=== PATIENT | female | born 1940 | race Caucasian/White ===

== ENCOUNTER → 2017-10-28 | Outpatient (CLI) | payer OTHER ==
[2017-10-28 11:00] LABS: CREATININE 1.15 mg/dL (0.55-1.02); POTASSIUM 4.2 mmol/L (3.5-5.1)
[2017-10-28 11:07] LABS: THYROID STIM HORMONE (HS) 8.61 uIU/ml (0.358-4.75)
== END | disposition home or self-care (01) ==
LOC: LAB 10:03
PROVIDERS: Family Medicine
DX: I10 Essential (primary) hypertension (principal); E78.00 Pure hypercholesterolemia, unspecified; R73.9 Hyperglycemia, unspecified

== ENCOUNTER → 2018-02-03 | Outpatient (CLI) | payer OTHER ==
[2018-02-03 11:38] LABS: BASO % 0.4 % (0.0-1.0); EOS # 0.3 10*3/uL (0.0-0.4); EOS % 2.8 % (1.0-4.0); HEMATOCRIT 45.5 % (37.0-47.0); HEMOGLOBIN 14.5 g/dl (12.0-16.0); LYMPH # 1.7 10*3/uL (1.3-4.4); LYMPH % 18.3 % (27.0-41.0); MEAN CORPUSCULAR HGB 30.9 pg (27.0-31.0); MEAN CORPUSCULAR HGB CONC 31.9 g/dl (33.0-37.0); MEAN PLATELET VOLUME 9.8 fl (9.6-12.3); MONO # 0.6 10*3/uL (0.1-1.0); MONO % 6.6 % (3.0-9.0); NEUT # 6.7 10*3/uL (2.3-7.9); NEUT % 71.7 % (47.0-73.0); PLATELET COUNT AUTOMATED 195 10*3/uL (130-400); RED BLOOD COUNT 4.69 10*6/uL (4.10-5.10); RED CELL DISTRI WIDTH 13.2 % (0-14.5); WHITE BLOOD COUNT 9.4 10*3/uL (4.8-10.8)
[2018-02-03 12:00] LABS: ALBUMIN 3.6 gm/dl (3.1-4.5); ALKALINE PHOSPHATASE 81 U/L (45-117); BUN 17 mg/dl (7-24); CHLORIDE 99 mmol/L (98-107); POTASSIUM 4.1 mmol/L (3.5-5.1); SGOT/AST 15 IU/L (3-35); SGPT/ALT 13 U/L (12-78); SODIUM 139 mmol/L (136-145); THYROXINE (T4) TOTAL 8.5 ug/dl (4.8-13.9); TOTAL PROTEIN 7.3 gm/dL (6.4-8.2)
== END | disposition home or self-care (01) ==
LOC: LAB 11:02
PROVIDERS: Family Medicine
DX: R53.83 Other fatigue (principal); R94.6 Abnormal results of thyroid function studies; J40 Bronchitis, not specified as acute or chronic; R73.9 Hyperglycemia, unspecified

== ENCOUNTER → 2019-07-06 | Outpatient (CLI) | payer OTHER ==
[2019-07-06 15:08] LABS: BUN 18 mg/dl (7-24); CHLORIDE 99 mmol/L (98-107); CHOLESTEROL 177 mg/dL (<200); CREATININE 0.85 mg/dL (0.55-1.02); HDL CHOLESTEROL 61 mg/dl (40-60); LDL CHOLESTEROL 95 mg/dL (9-159); POTASSIUM 3.9 mmol/L (3.5-5.1); SODIUM 139 mmol/L (136-145); TRIGLYCERIDES 107 mg/dl (<150); VLDL CHOLESTEROL 21 mg/dL (6-40)
[2019-07-06 15:13] LABS: THYROID STIM HORMONE (HS) 0.685 uIU/ml (0.358-4.75)
== END | disposition home or self-care (01) ==
LOC: LAB 14:13
PROVIDERS: Family Medicine
DX: I10 Essential (primary) hypertension (principal); R73.9 Hyperglycemia, unspecified

== ENCOUNTER 2020-09-29 05:20 | Inpatient (IN) | payer OTHER ==
[~2020-09-29] VITALS: Ht 149.8 cm; Wt 64.9 kg
[2020-09-29 05:24] VITALS: BP 142/52
[2020-09-29 05:57] LABS: BUN 17 mg/dl (7-24); CHLORIDE 103 mmol/L (98-107); CREATININE 1.02 mg/dL (0.55-1.02); POTASSIUM 4.3 mmol/L (3.5-5.1); SODIUM 143 mmol/L (136-145)
[2020-09-29 06:20] LABS: BASO % 0.2 % (0.0-1.0); EOS % 0.2 % (1.0-4.0); HEMATOCRIT 34.9 % (37.0-47.0); LYMPH # 0.5 10*3/uL (1.3-4.4); LYMPH % 4.2 % (27.0-41.0); MEAN CELL VOLUME 106.1 fl (81.0-99.0); MEAN CORPUSCULAR HGB 30.7 pg (27.0-31.0); MEAN CORPUSCULAR HGB CONC 28.9 g/dl (33.0-37.0); MEAN PLATELET VOLUME 10.3 fl (9.6-12.3); MONO # 0.9 10*3/uL (0.1-1.0); MONO % 7.1 % (3.0-9.0); NEUT # 11.4 10*3/uL (2.3-7.9); NEUT % 87.8 % (47.0-73.0); PLATELET COUNT AUTOMATED 181 10*3/uL (130-400); RED BLOOD COUNT 3.29 10*6/uL (4.10-5.10); RED CELL DISTRI WIDTH 13.2 % (0-14.5)
[2020-09-29 08:00] VITALS: BP 172/65
[2020-09-29 12:12] LABS: ABG BASE EXCESS 9.3 mmol/L (-2.0-2.0); ARTERIAL BLOOD GAS PH 7.353 (7.35-7.45)
[2020-09-29 12:30] VITALS: BP 172/65
[2020-09-29] MEDS ORDERED: LEVOTHYROXINE50 MCG PO (13:44)
[2020-09-29] MEDS ORDERED: PHENERGAN25 M3 PO (13:45)
[2020-09-29] MEDS ORDERED: LORAZEPAM1 MG PO (13:45)
[2020-09-29] MEDS ORDERED: VENT7GM INH (13:46)
[2020-09-29] MEDS ORDERED: ADVAIR HFA 115-12 GM IH (13:46)
[2020-09-29] MEDS ORDERED: HYDROCODONE-AC1 EAC1 PO (13:47)
[2020-09-29] MEDS ORDERED: HYDROCHLOROTH12.5 M3 PO (13:47)
[2020-09-29] MEDS ORDERED: LOSARTAN POTASS50 M1 PO (13:47)
[2020-09-29] MEDS ORDERED: MECLIZINE HCL25 M2 PO (13:55)
[2020-09-29 16:00] VITALS: BP 146/71
[2020-09-29 20:00] VITALS: BP 147/53
[2020-09-30] VITALS: BP 139/76
[2020-09-30 06:33] LABS: HEMATOCRIT 31.9 % (37.0-47.0); MEAN CORPUSCULAR HGB 29.8 pg (27.0-31.0); MEAN CORPUSCULAR HGB CONC 29.8 g/dl (33.0-37.0); MEAN PLATELET VOLUME 10.3 fl (9.6-12.3); PLATELET COUNT AUTOMATED 187 10*3/uL (130-400); RED BLOOD COUNT 3.19 10*6/uL (4.10-5.10); RED CELL DISTRI WIDTH 12.9 % (0-14.5); WHITE BLOOD COUNT 7.2 10*3/uL (4.8-10.8)
[2020-09-30 06:38] LABS: ALBUMIN 2.8 gm/dl (3.1-4.5); CREATININE 1.1 mg/dL (0.55-1.02); POTASSIUM 3.9 mmol/L (3.5-5.1); TOTAL PROTEIN 6.6 gm/dL (6.4-8.2)
[2020-09-30 06:43] LABS: ACT PARTIAL THROMBO TIME 24.8 SECONDS (20.0-32.1); INTERNATIONAL NORM RATIO 1.1 (2.0-3.5)
[2020-09-30 06:46] LABS: FREE T4 1.2 ng/dl (0.76-1.46); THYROID STIM HORMONE (HS) 0.1 uIU/ml (0.358-4.75)
[2020-09-30 07:32] LABS: TOTAL CELLS COUNTED 100 #CELLS
[2020-09-30 07:33] LABS: PLATELET SUFFICIENCY NORMAL (NORMAL)
[2020-09-30 08:00] VITALS: BP 166/59
[2020-09-30 08:59] LABS: VITAMIN D, 25-HYDROXY 14.3 ng/mL (30-100)
[2020-09-30 09:00] LABS: FERRITIN 94.8 ng/mL (10.0-291.0)
[2020-09-30 12:00] VITALS: BP 154/61
[2020-09-30 16:00] VITALS: BP 145/70
[2020-09-30 20:00] VITALS: BP 151/46
[2020-10-01] VITALS: BP 146/57
[2020-10-01 06:31] LABS: EOS % 0.1 % (1.0-4.0); HEMATOCRIT 34.9 % (37.0-47.0); LYMPH # 0.8 10*3/uL (1.3-4.4); LYMPH % 8.5 % (27.0-41.0); MEAN CORPUSCULAR HGB 29.8 pg (27.0-31.0); MEAN CORPUSCULAR HGB CONC 29.8 g/dl (33.0-37.0); MEAN PLATELET VOLUME 10.4 fl (9.6-12.3); MONO # 0.7 10*3/uL (0.1-1.0); MONO % 7.3 % (3.0-9.0); NEUT # 7.6 10*3/uL (2.3-7.9); NEUT % 83.8 % (47.0-73.0); PLATELET COUNT AUTOMATED 227 10*3/uL (130-400); RED BLOOD COUNT 3.49 10*6/uL (4.10-5.10); RED CELL DISTRI WIDTH 12.9 % (0-14.5)
[2020-10-01 06:57] LABS: ALBUMIN 2.9 gm/dl (3.1-4.5); CREATININE 1.15 mg/dL (0.55-1.02); POTASSIUM 3.6 mmol/L (3.5-5.1); TOTAL PROTEIN 6.9 gm/dL (6.4-8.2)
[2020-10-01 08:00] VITALS: BP 149/62
[2020-10-01 08:14] LABS: ARTERIAL BLOOD GAS PH 7.37 (7.35-7.45)
[2020-10-01 12:00] VITALS: BP 149/63
[2020-10-01 16:00] VITALS: BP 139/68
[2020-10-01 20:00] VITALS: BP 153/53
[2020-10-02] VITALS: BP 155/64
[2020-10-02 06:54] LABS: EOS % 0.1 % (1.0-4.0); HEMATOCRIT 35.5 % (37.0-47.0); LYMPH # 0.7 10*3/uL (1.3-4.4); LYMPH % 9.4 % (27.0-41.0); MEAN CELL VOLUME 100.3 fl (81.0-99.0); MEAN CORPUSCULAR HGB 29.7 pg (27.0-31.0); MEAN CORPUSCULAR HGB CONC 29.6 g/dl (33.0-37.0); MONO # 0.6 10*3/uL (0.1-1.0); MONO % 9.1 % (3.0-9.0); NEUT # 5.6 10*3/uL (2.3-7.9); NEUT % 80.8 % (47.0-73.0); PLATELET COUNT AUTOMATED 237 10*3/uL (130-400); RED BLOOD COUNT 3.54 10*6/uL (4.10-5.10); RED CELL DISTRI WIDTH 12.7 % (0-14.5); WHITE BLOOD COUNT 6.9 10*3/uL (4.8-10.8)
[2020-10-02 07:03] LABS: BUN 42 mg/dl (7-24); CHLORIDE 93 mmol/L (98-107); CREATININE 1.04 mg/dL (0.55-1.02); POTASSIUM 3.8 mmol/L (3.5-5.1); SODIUM 142 mmol/L (136-145)
[2020-10-02 08:00] VITALS: BP 150/55
[2020-10-02] MEDS ORDERED: FUROSEMIDE40 MG PO (10:38)
[2020-10-02] MEDS ORDERED: K-TAB20 MEQ PO (10:39)
[2020-10-02 12:00] VITALS: BP 109/50
== END 2020-10-02 14:27 | disposition home or self-care (01) | DRG 871 ==
LOC: ED 05:20 → EDHOLD 09:11 → 4E 09:11 → 5E 09:11 → EDHOLD 11:18 → 5E 11:57 → 4E 09-30 00:47
PROVIDERS: Hospitalist; Internal Medicine; Internal Medicine Critical Care Medicine; Social Worker Clinical; ADMIT Internal Medicine; ATTEND Internal Medicine
DX: A41.9 Sepsis, unspecified organism (principal); I50.33 Acute on chronic diastolic (congestive) heart failure; J44.0 Chronic obstructive pulmonary disease with (acute) lower respiratory infection; J96.12 Chronic respiratory failure with hypercapnia; J44.1 Chronic obstructive pulmonary disease with (acute) exacerbation; J20.9 Acute bronchitis, unspecified; D53.9 Nutritional anemia, unspecified; Z20.828 Contact with and (suspected) exposure to other viral communicable diseases; R73.9 Hyperglycemia, unspecified; E03.9 Hypothyroidism, unspecified; I11.0 Hypertensive heart disease with heart failure; E66.9 Obesity, unspecified; F17.210 Nicotine dependence, cigarettes, uncomplicated; Z79.51 Long term (current) use of inhaled steroids; Z80.0 Family history of malignant neoplasm of digestive organs; Z79.1 Long term (current) use of non-steroidal anti-inflammatories (NSAID); Z79.899 Other long term (current) drug therapy; Z82.49 Family history of ischemic heart disease and other diseases of the circulatory system

== ENCOUNTER 2020-11-23 10:41 | Inpatient (IN) | payer OTHER ==
[2020-11-23] VITALS (16 sets, daily range): BP systolic 94–168; BP diastolic 30–84
[~2020-11-23] VITALS: Ht 157.5 cm; Wt 64.6 kg
[~2020-11-23 10:41] MED LIST: ADVAIR HFA 115-12 GM IH; FUROSEMIDE40 MG PO; HYDROCHLOROTH12.5 M3 PO; HYDROCODONE-AC1 EAC1 PO; K-TAB20 MEQ PO; LEVOTHYROXINE50 MCG PO; LORAZEPAM1 MG PO; LOSARTAN POTASS50 M1 PO; MECLIZINE HCL25 M2 PO; PHENERGAN25 M3 PO; VENT7GM INH
[2020-11-23 11:09] LABS: HEMATOCRIT 39.6 % (37.0-47.0); MEAN CELL VOLUME 108.2 fl (81.0-99.0); MEAN CORPUSCULAR HGB 30.1 pg (27.0-31.0); MEAN CORPUSCULAR HGB CONC 27.8 g/dl (33.0-37.0); PLATELET COUNT AUTOMATED 223 10*3/uL (130-400); RED BLOOD COUNT 3.66 10*6/uL (4.10-5.10); RED CELL DISTRI WIDTH 13.4 % (0-14.5); WHITE BLOOD COUNT 19.5 10*3/uL (4.8-10.8)
[2020-11-23 11:22] LABS: ACT PARTIAL THROMBO TIME 24.6 SECONDS (20.0-32.1)
[2020-11-23 11:26] LABS: TOTAL CELLS COUNTED 100 #CELLS
[2020-11-23 11:27] LABS: PLATELET SUFFICIENCY NORMAL (NORMAL); POLYCHROMASIA SLIGHT; TOXIC GRANULATION SLIGHT; VACUOLATION OF NEUTROPHILS SLIGHT
[2020-11-23 11:29] LABS: ALKALINE PHOSPHATASE 101 U/L (45-117); BUN 17 mg/dl (7-24); CHLORIDE 106 mmol/L (98-107); CREATININE 0.99 mg/dL (0.55-1.02); POTASSIUM 4.5 mmol/L (3.5-5.1); SGOT/AST 30 IU/L (3-35); SGPT/ALT 21 U/L (12-78); SODIUM 143 mmol/L (136-145); TOTAL PROTEIN 7.1 gm/dL (6.4-8.2); TROPONIN I 0.037 ng/ml (<0.045)
[2020-11-23 11:54] LABS: BILIRUBIN Negative (Negative); BLOOD 2+ (Negative); CLARITY Turbid (Clear); COLOR Dark Yellow (Yellow); GLUCOSE Negative (Negative); KETONE Trace (Negative); LEUKO ESTERASE Negative (Negative); NITRITE Negative (Negative); SPECIFIC GRAVITY 1.025 (1.001-1.030)
[2020-11-23 12:06] LABS: BACTERIA 3+; EPITHELIAL CELLS 16-20; RBC 16-20 rbc/hpf (0-2)
[2020-11-23 12:07] LABS: COARSE GRANULAR CAST 31-40; MUCOUS 2+
[2020-11-23 13:24] LABS: ABG BASE EXCESS 3.9 mmol/L (-2.0-2.0); ARTERIAL BLOOD GAS PH 7.255 (7.35-7.45)
[2020-11-23] MEDS ORDERED: ASPIRIN CHEWABL81 MG PO (16:37)
[2020-11-23 17:05] LABS: ABG BASE EXCESS 2.2 mmol/L (-2.0-2.0); ARTERIAL BLOOD GAS PH 7.301 (7.35-7.45)
[2020-11-23 18:10] LABS: URINE AMPHETAMINES < 1000 (1000ng/ml); URINE BARBITURATES < 200 (200ng/ml); URINE BENZODIAZEPINES > 200 (200ng/ml); URINE CANNABINOIDS (THC) < 50 (50ng/ml); URINE COCAINE < 300 (300ng/ml); URINE METHADONE < 300 (300ng/ml); URINE OPIATES > 300 (300ng/ml)
[2020-11-23 18:12] LABS: URINE PHENCYCLIDINE < 25 (25ng/ml)
[2020-11-24] VITALS (13 sets, daily range): BP systolic 101–169; BP diastolic 31–69
[2020-11-24 06:16] LABS: POTASSIUM 3.8 mmol/L (3.5-5.1)
[2020-11-24 06:32] LABS: ALBUMIN 2.6 gm/dl (3.1-4.5); CREATININE 1.16 mg/dL (0.55-1.02); FREE T4 1.23 ng/dl (0.76-1.46); THYROID STIM HORMONE (HS) 0.184 uIU/ml (0.358-4.75); TOTAL PROTEIN 6.1 gm/dL (6.4-8.2)
[2020-11-24 06:39] LABS: MEAN CORPUSCULAR HGB 29.8 pg (27.0-31.0); MEAN CORPUSCULAR HGB CONC 29.4 g/dl (33.0-37.0); MEAN PLATELET VOLUME 10.5 fl (9.6-12.3); PLATELET COUNT AUTOMATED 187 10*3/uL (130-400); RED BLOOD COUNT 3.15 10*6/uL (4.10-5.10); RED CELL DISTRI WIDTH 13.7 % (0-14.5)
[2020-11-24 06:42] LABS: MEAN CELL VOLUME 101.6 fl (81.0-99.0)
[2020-11-24 07:08] LABS: PLATELET SUFFICIENCY NORMAL (NORMAL); TOTAL CELLS COUNTED 100 #CELLS; TOXIC GRANULATION SLIGHT
[2020-11-24 08:09] LABS: ABG BASE EXCESS 5.9 mmol/L (-2.0-2.0); ARTERIAL BLOOD GAS PH 7.398 (7.35-7.45); ARTERIAL BLOOD GAS PO2 115.9 (80-90)
[2020-11-24 16:57] LABS: ABG BASE EXCESS 3.6 mmol/L (-2.0-2.0); ARTERIAL BLOOD GAS PH 7.42 (7.35-7.45); ARTERIAL BLOOD GAS PO2 71.5 (80-90)
[2020-11-25] VITALS (10 sets, daily range): BP systolic 135–176; BP diastolic 45–85
[2020-11-25 06:10] LABS: ALBUMIN 2.6 gm/dl (3.1-4.5); ALKALINE PHOSPHATASE 76 U/L (45-117); BUN 29 mg/dl (7-24); CHLORIDE 105 mmol/L (98-107); CREATININE 1.01 mg/dL (0.55-1.02); SGOT/AST 22 IU/L (3-35); SGPT/ALT 17 U/L (12-78); SODIUM 144 mmol/L (136-145); TOTAL PROTEIN 6.2 gm/dL (6.4-8.2)
[2020-11-25 07:09] LABS: HEMATOCRIT 33.4 % (37.0-47.0); MEAN CORPUSCULAR HGB 29.9 pg (27.0-31.0); MEAN CORPUSCULAR HGB CONC 30.5 g/dl (33.0-37.0); MEAN PLATELET VOLUME 11.2 fl (9.6-12.3); PLATELET COUNT AUTOMATED 197 10*3/uL (130-400); RED BLOOD COUNT 3.41 10*6/uL (4.10-5.10); RED CELL DISTRI WIDTH 13.9 % (0-14.5); WHITE BLOOD COUNT 13.7 10*3/uL (4.8-10.8)
[2020-11-25 07:17] LABS: MEAN CELL VOLUME 97.9 fl (81.0-99.0)
[2020-11-25 07:30] LABS: PLATELET SUFFICIENCY NORMAL (NORMAL); TOTAL CELLS COUNTED 100 #CELLS; TOXIC GRANULATION SLIGHT
[2020-11-25 08:13] LABS: ABG BASE EXCESS 6.8 mmol/L (-2.0-2.0); ARTERIAL BLOOD GAS PH 7.455 (7.35-7.45); ARTERIAL BLOOD GAS PO2 81.4 (80-90)
[2020-11-25 13:52] LABS: ABG BASE EXCESS 7.6 mmol/L (-2.0-2.0); ARTERIAL BLOOD GAS PH 7.415 (7.35-7.45); ARTERIAL BLOOD GAS PO2 79.3 (80-90)
[2020-11-25 17:14] LABS: ABG BASE EXCESS 8.9 mmol/L (-2.0-2.0); ARTERIAL BLOOD GAS PH 7.401 (7.35-7.45); ARTERIAL BLOOD GAS PO2 135.3 (80-90)
[2020-11-26] VITALS: BP 175/65
[2020-11-26 04:00] VITALS: BP 183/72
[2020-11-26 06:16] LABS: HEMATOCRIT 31.3 % (37.0-47.0); MEAN CELL VOLUME 99.7 fl (81.0-99.0); MEAN CORPUSCULAR HGB 30.3 pg (27.0-31.0); MEAN CORPUSCULAR HGB CONC 30.4 g/dl (33.0-37.0); MEAN PLATELET VOLUME 10.3 fl (9.6-12.3); PLATELET COUNT AUTOMATED 208 10*3/uL (130-400); RED BLOOD COUNT 3.14 10*6/uL (4.10-5.10); RED CELL DISTRI WIDTH 14.4 % (0-14.5); WHITE BLOOD COUNT 13.7 10*3/uL (4.8-10.8)
[2020-11-26 06:28] LABS: ALBUMIN 2.8 gm/dl (3.1-4.5); BUN 33 mg/dl (7-24); CHLORIDE 103 mmol/L (98-107); POTASSIUM 4.7 mmol/L (3.5-5.1); SODIUM 139 mmol/L (136-145)
[2020-11-26 06:35] LABS: ALKALINE PHOSPHATASE 73 U/L (45-117); CREATININE 1.01 mg/dL (0.55-1.02); SGOT/AST 37 IU/L (3-35); SGPT/ALT 25 U/L (12-78); TOTAL PROTEIN 6.4 gm/dL (6.4-8.2)
[2020-11-26 07:46] LABS: PLATELET SUFFICIENCY NORMAL (NORMAL); TOTAL CELLS COUNTED 100 #CELLS
[2020-11-26 08:00] VITALS: BP 162/66
[2020-11-26 12:00] VITALS: BP 148/76
[2020-11-26 12:52] LABS: ARTERIAL BLOOD GAS PH 7.377 (7.35-7.45)
[2020-11-26 16:00] VITALS: BP 184/78
[2020-11-26 20:00] VITALS: BP 176/83
[2020-11-27] VITALS: BP 167/72
[2020-11-27 04:00] VITALS: BP 149/49
[2020-11-27 06:26] LABS: ALBUMIN 3.2 gm/dl (3.1-4.5); ALKALINE PHOSPHATASE 79 U/L (45-117); BUN 36 mg/dl (7-24); CHLORIDE 99 mmol/L (98-107); CREATININE 0.97 mg/dL (0.55-1.02); POTASSIUM 5.2 mmol/L (3.5-5.1); SGOT/AST 70 IU/L (3-35); SGPT/ALT 50 U/L (12-78); SODIUM 142 mmol/L (136-145)
[2020-11-27 06:32] LABS: HEMATOCRIT 34.8 % (37.0-47.0); MEAN CELL VOLUME 99.7 fl (81.0-99.0); MEAN CORPUSCULAR HGB 29.5 pg (27.0-31.0); MEAN CORPUSCULAR HGB CONC 29.6 g/dl (33.0-37.0); MEAN PLATELET VOLUME 10.6 fl (9.6-12.3); RED BLOOD COUNT 3.49 10*6/uL (4.10-5.10); RED CELL DISTRI WIDTH 14.1 % (0-14.5); WHITE BLOOD COUNT 16.1 10*3/uL (4.8-10.8)
[2020-11-27 06:34] LABS: PLATELET COUNT AUTOMATED 302 10*3/uL (130-400)
[2020-11-27 06:44] LABS: PLATELET SUFFICIENCY NORMAL (NORMAL); STOMATOCYTE FEW; TOTAL CELLS COUNTED 100 #CELLS
[2020-11-27 08:00] VITALS: BP 170/67
[2020-11-27 12:00] VITALS: BP 185/77
[2020-11-27 16:00] VITALS: BP 184/65
[2020-11-27 20:00] VITALS: BP 166/56
[2020-11-28] VITALS: BP 164/72
[2020-11-28 04:00] VITALS: BP 160/64
[2020-11-28 06:27] LABS: BASO % 0.2 % (0.0-1.0); HEMATOCRIT 32.9 % (37.0-47.0); LYMPH # 0.7 10*3/uL (1.3-4.4); LYMPH % 7.4 % (27.0-41.0); MEAN CORPUSCULAR HGB 29.5 pg (27.0-31.0); MEAN CORPUSCULAR HGB CONC 29.5 g/dl (33.0-37.0); MEAN PLATELET VOLUME 10.2 fl (9.6-12.3); MONO # 0.8 10*3/uL (0.1-1.0); NEUT # 8.2 10*3/uL (2.3-7.9); NEUT % 82.9 % (47.0-73.0); PLATELET COUNT AUTOMATED 221 10*3/uL (130-400); RED BLOOD COUNT 3.29 10*6/uL (4.10-5.10); RED CELL DISTRI WIDTH 13.8 % (0-14.5); WHITE BLOOD COUNT 9.9 10*3/uL (4.8-10.8)
[2020-11-28 06:51] LABS: ALBUMIN 2.8 gm/dl (3.1-4.5); ALKALINE PHOSPHATASE 67 U/L (45-117); BUN 35 mg/dl (7-24); CHLORIDE 100 mmol/L (98-107); CREATININE 0.83 mg/dL (0.55-1.02); POTASSIUM 5.1 mmol/L (3.5-5.1); SGOT/AST 32 IU/L (3-35); SGPT/ALT 49 U/L (12-78); SODIUM 139 mmol/L (136-145); TOTAL PROTEIN 6.1 gm/dL (6.4-8.2)
[2020-11-28 08:00] VITALS: BP 150/58
[2020-11-28 12:00] VITALS: BP 168/72
[2020-11-28 16:00] VITALS: BP 177/71
[2020-11-28 20:00] VITALS: BP 127/45
[2020-11-29] VITALS: BP 129/45
[2020-11-29 04:00] VITALS: BP 161/52
[2020-11-29 06:18] LABS: HEMATOCRIT 34.4 % (37.0-47.0); MEAN CELL VOLUME 99.7 fl (81.0-99.0); MEAN CORPUSCULAR HGB 29.6 pg (27.0-31.0); MEAN CORPUSCULAR HGB CONC 29.7 g/dl (33.0-37.0); PLATELET COUNT AUTOMATED 282 10*3/uL (130-400); RED BLOOD COUNT 3.45 10*6/uL (4.10-5.10); RED CELL DISTRI WIDTH 13.6 % (0-14.5); WHITE BLOOD COUNT 17.3 10*3/uL (4.8-10.8)
[2020-11-29 06:33] LABS: ALBUMIN 2.9 gm/dl (3.1-4.5); ALKALINE PHOSPHATASE 68 U/L (45-117); BUN 42 mg/dl (7-24); CHLORIDE 97 mmol/L (98-107); CREATININE 0.94 mg/dL (0.55-1.02); POTASSIUM 4.6 mmol/L (3.5-5.1); SGOT/AST 30 IU/L (3-35); SGPT/ALT 44 U/L (12-78); SODIUM 141 mmol/L (136-145); TOTAL PROTEIN 5.9 gm/dL (6.4-8.2)
[2020-11-29 07:42] LABS: PLATELET SUFFICIENCY NORMAL (NORMAL); STOMATOCYTE MANY; TOTAL CELLS COUNTED 100 #CELLS
[2020-11-29 08:00] VITALS: BP 110/39
[2020-11-29 12:00] VITALS: BP 140/64
[2020-11-29 16:00] VITALS: BP 140/56
[2020-11-29 20:00] VITALS: BP 105/34
[2020-11-30] VITALS (7 sets, daily range): BP systolic 99–120; BP diastolic 32–50
[2020-11-30 06:01] LABS: ALBUMIN 2.7 gm/dl (3.1-4.5); BUN 50 mg/dl (7-24); CHLORIDE 101 mmol/L (98-107); POTASSIUM 4.1 mmol/L (3.5-5.1); SODIUM 143 mmol/L (136-145)
[2020-11-30 06:04] LABS: ALKALINE PHOSPHATASE 61 U/L (45-117); CREATININE 1.03 mg/dL (0.55-1.02); SGOT/AST 32 IU/L (3-35); SGPT/ALT 44 U/L (12-78); TOTAL PROTEIN 5.8 gm/dL (6.4-8.2)
[2020-11-30 06:16] LABS: BASO % 0.3 % (0.0-1.0); EOS # 0.1 10*3/uL (0.0-0.4); EOS % 0.4 % (1.0-4.0); HEMATOCRIT 34.1 % (37.0-47.0); LYMPH # 1.8 10*3/uL (1.3-4.4); LYMPH % 12.6 % (27.0-41.0); MEAN CORPUSCULAR HGB 29.5 pg (27.0-31.0); MEAN CORPUSCULAR HGB CONC 28.4 g/dl (33.0-37.0); MEAN PLATELET VOLUME 10.4 fl (9.6-12.3); MONO # 1.4 10*3/uL (0.1-1.0); MONO % 9.9 % (3.0-9.0); NEUT # 10.6 10*3/uL (2.3-7.9); PLATELET COUNT AUTOMATED 257 10*3/uL (130-400); RED BLOOD COUNT 3.29 10*6/uL (4.10-5.10); RED CELL DISTRI WIDTH 13.7 % (0-14.5); WHITE BLOOD COUNT 14.1 10*3/uL (4.8-10.8)
[2020-11-30 06:18] LABS: MEAN CELL VOLUME 103.6 fl (81.0-99.0)
[2020-12-01] VITALS: BP 117/43
[2020-12-01 06:23] LABS: BASO % 0.2 % (0.0-1.0); EOS % 0.1 % (1.0-4.0); HEMATOCRIT 32.8 % (37.0-47.0); LYMPH # 1.7 10*3/uL (1.3-4.4); LYMPH % 10.4 % (27.0-41.0); MEAN CELL VOLUME 101.9 fl (81.0-99.0); MEAN CORPUSCULAR HGB 29.5 pg (27.0-31.0); MONO # 1.4 10*3/uL (0.1-1.0); MONO % 8.5 % (3.0-9.0); NEUT # 12.7 10*3/uL (2.3-7.9); NEUT % 79.2 % (47.0-73.0); PLATELET COUNT AUTOMATED 278 10*3/uL (130-400); RED BLOOD COUNT 3.22 10*6/uL (4.10-5.10); RED CELL DISTRI WIDTH 14.1 % (0-14.5); WHITE BLOOD COUNT 16.1 10*3/uL (4.8-10.8)
[2020-12-01 06:39] LABS: BUN 43 mg/dl (7-24); CHLORIDE 101 mmol/L (98-107); POTASSIUM 3.6 mmol/L (3.5-5.1); SODIUM 142 mmol/L (136-145)
[2020-12-01 06:44] LABS: CREATININE 0.99 mg/dL (0.55-1.02)
[2020-12-01 08:00] VITALS: BP 118/48
[2020-12-01 12:00] VITALS: BP 149/39
[2020-12-01 16:00] VITALS: BP 136/34
[2020-12-01 20:00] VITALS: BP 133/44
[2020-12-02] VITALS: BP 140/49
[2020-12-02 06:16] LABS: BASO % 0.2 % (0.0-1.0); EOS # 0.1 10*3/uL (0.0-0.4); EOS % 0.4 % (1.0-4.0); HEMATOCRIT 34.1 % (37.0-47.0); LYMPH # 1.7 10*3/uL (1.3-4.4); LYMPH % 12.1 % (27.0-41.0); MEAN CELL VOLUME 100.3 fl (81.0-99.0); MEAN CORPUSCULAR HGB 29.7 pg (27.0-31.0); MEAN CORPUSCULAR HGB CONC 29.6 g/dl (33.0-37.0); MEAN PLATELET VOLUME 9.7 fl (9.6-12.3); MONO # 1.5 10*3/uL (0.1-1.0); MONO % 10.5 % (3.0-9.0); NEUT # 10.6 10*3/uL (2.3-7.9); NEUT % 75.2 % (47.0-73.0); PLATELET COUNT AUTOMATED 305 10*3/uL (130-400); RED CELL DISTRI WIDTH 14.2 % (0-14.5); WHITE BLOOD COUNT 14.1 10*3/uL (4.8-10.8)
[2020-12-02 06:20] LABS: BUN 37 mg/dl (7-24); CHLORIDE 103 mmol/L (98-107); CREATININE 0.98 mg/dL (0.55-1.02); POTASSIUM 3.4 mmol/L (3.5-5.1); SODIUM 142 mmol/L (136-145)
[2020-12-02 16:00] VITALS: BP 146/88
[2020-12-02 20:00] VITALS: BP 113/30
[2020-12-03] VITALS: BP 117/34
[2020-12-03 06:09] LABS: BUN 33 mg/dl (7-24); CHLORIDE 104 mmol/L (98-107); POTASSIUM 3.3 mmol/L (3.5-5.1); SODIUM 140 mmol/L (136-145)
[2020-12-03 08:00] VITALS: BP 151/42
[2020-12-03 12:00] VITALS: BP 157/74
[2020-12-03] MEDS ORDERED: HYDROCODONE-AC1 EAC1 PO (13:24)
[2020-12-03] MEDS ORDERED: K-TAB20 MEQ PO (13:24)
[2020-12-03] MEDS ORDERED: VENTOLIN 02.5 MG/3 M NEB (13:24)
[2020-12-03] MEDS ORDERED: DOXYCYCLINE100 M3 PO (13:26)
== END 2020-12-03 15:44 | DRG 871 ==
LOC: ED 10:41 → EDHOLD 13:43 → ICCU 13:43 → 4E 11-30 13:00
PROVIDERS: Emergency Medicine; Family Medicine; Internal Medicine; Internal Medicine Critical Care Medicine; ADMIT Emergency Medicine; ATTEND Emergency Medicine
PROC: 5A1945Z Respiratory Ventilation, 24-96 Consecutive Hours (ICD-10-PCS; principal; 2020-11-23)
PROC: 0BH17EZ Insertion of Endotracheal Airway into Trachea, Via Natural or Artificial Opening (ICD-10-PCS; 2020-11-23)
PROC: 5A09357 Assistance with Respiratory Ventilation, Less than 24 Consecutive Hours, Continuous Positive Airway Pressure (ICD-10-PCS; 2020-11-25)
PROC: 5A09357 Assistance with Respiratory Ventilation, Less than 24 Consecutive Hours, Continuous Positive Airway Pressure (ICD-10-PCS; 2020-11-26)
PROC: 5A09357 Assistance with Respiratory Ventilation, Less than 24 Consecutive Hours, Continuous Positive Airway Pressure (ICD-10-PCS; 2020-11-27)
PROC: 5A09357 Assistance with Respiratory Ventilation, Less than 24 Consecutive Hours, Continuous Positive Airway Pressure (ICD-10-PCS; 2020-11-28)
PROC: 5A09357 Assistance with Respiratory Ventilation, Less than 24 Consecutive Hours, Continuous Positive Airway Pressure (ICD-10-PCS; 2020-11-30)
PROC: 5A09357 Assistance with Respiratory Ventilation, Less than 24 Consecutive Hours, Continuous Positive Airway Pressure (ICD-10-PCS; 2020-12-01)
PROC: 5A09357 Assistance with Respiratory Ventilation, Less than 24 Consecutive Hours, Continuous Positive Airway Pressure (ICD-10-PCS; 2020-12-01)
DX: A41.9 Sepsis, unspecified organism (principal); J96.22 Acute and chronic respiratory failure with hypercapnia; J96.21 Acute and chronic respiratory failure with hypoxia; J15.212 Pneumonia due to Methicillin resistant Staphylococcus aureus; E44.1 Mild protein-calorie malnutrition; I50.32 Chronic diastolic (congestive) heart failure; E87.3 Alkalosis; R65.20 Severe sepsis without septic shock; D53.9 Nutritional anemia, unspecified; E03.9 Hypothyroidism, unspecified; R73.9 Hyperglycemia, unspecified; E83.41 Hypermagnesemia; I11.0 Hypertensive heart disease with heart failure; J43.9 Emphysema, unspecified; F51.01 Primary insomnia; E66.9 Obesity, unspecified; F41.1 Generalized anxiety disorder; R53.81 Other malaise; E87.6 Hypokalemia; Z20.822 Contact with and (suspected) exposure to COVID-19; Z99.81 Dependence on supplemental oxygen; Z88.1 Allergy status to other antibiotic agents; Z82.49 Family history of ischemic heart disease and other diseases of the circulatory system; Z80.0 Family history of malignant neoplasm of digestive organs; Z68.27 Body mass index [BMI] 27.0-27.9, adult

== ENCOUNTER 2021-02-02 03:13 | Inpatient (IN) | payer OTHER ==
[2021-02-02] VITALS (24 sets, daily range): BP systolic 102–173; BP diastolic 26–74
[~2021-02-02] VITALS: Ht 157.5 cm; Wt 59.4 kg
[~2021-02-02 03:13] MED LIST changes: +ASPIRIN CHEWABL81 MG PO; +DOXYCYCLINE100 M3 PO; +VENTOLIN 02.5 MG/3 M NEB
[2021-02-02 03:35] LABS: ABG BASE EXCESS 19.9 mmol/L (-2.0-2.0); ARTERIAL BLOOD GAS PO2 233.6 (80-90)
[2021-02-02 03:39] LABS: ARTERIAL BLOOD GAS PH 7.17 (7.35-7.45)
[2021-02-02 03:51] LABS: BASO # 0.1 10*3/uL (0.0-0.1); BASO % 0.5 % (0.0-1.0); EOS % 0.1 % (1.0-4.0); HEMATOCRIT 38.2 % (37.0-47.0); LYMPH # 0.7 10*3/uL (1.3-4.4); LYMPH % 4.3 % (27.0-41.0); MEAN CORPUSCULAR HGB 30.3 pg (27.0-31.0); MEAN CORPUSCULAR HGB CONC 28.3 g/dl (33.0-37.0); MEAN PLATELET VOLUME 10.2 fl (9.6-12.3); MONO # 1.2 10*3/uL (0.1-1.0); MONO % 7.5 % (3.0-9.0); NEUT # 13.4 10*3/uL (2.3-7.9); NEUT % 86.2 % (47.0-73.0); PLATELET COUNT AUTOMATED 238 10*3/uL (130-400); RED BLOOD COUNT 3.57 10*6/uL (4.10-5.10); RED CELL DISTRI WIDTH 13.8 % (0-14.5); WHITE BLOOD COUNT 15.5 10*3/uL (4.8-10.8)
[2021-02-02 04:09] LABS: ALBUMIN 3.5 gm/dl (3.1-4.5); ALKALINE PHOSPHATASE 87 U/L (45-117); BUN 20 mg/dl (7-24); CHLORIDE 97 mmol/L (98-107); CREATININE 1.02 mg/dL (0.55-1.02); POTASSIUM 3.5 mmol/L (3.5-5.1); SGOT/AST 32 IU/L (3-35); SGPT/ALT 21 U/L (12-78); SODIUM 142 mmol/L (136-145); TOTAL PROTEIN 7.6 gm/dL (6.4-8.2)
[2021-02-02 04:10] LABS: TROPONIN I 0.044 ng/ml (<0.045)
[2021-02-02 05:45] LABS: BILIRUBIN 2+ (Negative); BLOOD Negative (Negative); CLARITY Turbid (Clear); COLOR Dark Yellow (Yellow); GLUCOSE Negative (Negative); KETONE Trace (Negative); LEUKO ESTERASE Negative (Negative); NITRITE Negative (Negative); SPECIFIC GRAVITY 1.025 (1.001-1.030)
[2021-02-02 06:01] LABS: MUCOUS 2+
[2021-02-02] MEDS ORDERED: K-LOR 20MEQ20 ME1 PO (10:05)
[2021-02-02] MEDS ORDERED: ATIVAN1 MG PO (10:07)
[2021-02-02] MEDS ORDERED: PROMETHAZINE25 M1 PO (10:08)
[2021-02-02] MEDS ORDERED: SOMA350 MG PO (10:08)
[2021-02-02 11:52] LABS: ARTERIAL BLOOD GAS PH 7.572 (7.35-7.45); ARTERIAL BLOOD GAS PO2 93.5 (80-90)
[2021-02-02 12:45] LABS: BILIRUBIN Negative (Negative); BLOOD Negative (Negative); CLARITY Clear (Clear); COLOR Yellow (Yellow); GLUCOSE Negative (Negative); KETONE Negative (Negative); LEUKO ESTERASE Negative (Negative); NITRITE Negative (Negative); SPECIFIC GRAVITY <= 1.005 (1.001-1.030); UROBILINOGEN 0.2 E.U./dl (0.0-1.0)
[2021-02-02 12:48] LABS: PH 8.5 (4.5-8.0)
[2021-02-02 12:51] LABS: BACTERIA TRACE; EPITHELIAL CELLS 0-2; RBC 0-2 rbc/hpf (0-2); WBC 0-2 wbc/hpf (0-5)
[2021-02-02 15:14] LABS: ABG BASE EXCESS 14.7 mmol/L (-2.0-2.0); ARTERIAL BLOOD GAS PH 7.435 (7.35-7.45); ARTERIAL BLOOD GAS PO2 100.2 (80-90)
[2021-02-03] VITALS: BP 106/39
[2021-02-03 04:00] VITALS: BP 152/66
[2021-02-03 06:11] LABS: ARTERIAL BLOOD GAS PH 7.484 (7.35-7.45); ARTERIAL BLOOD GAS PO2 40.8 (80-90)
[2021-02-03 06:12] LABS: ALKALINE PHOSPHATASE 71 U/L (45-117); BUN 24 mg/dl (7-24); CHLORIDE 93 mmol/L (98-107); CREATININE 1.05 mg/dL (0.55-1.02); POTASSIUM 2.6 mmol/L (3.5-5.1); SGOT/AST 19 IU/L (3-35); SGPT/ALT 15 U/L (12-78); SODIUM 142 mmol/L (136-145); TOTAL PROTEIN 6.5 gm/dL (6.4-8.2)
[2021-02-03 06:36] LABS: HEMATOCRIT 32.3 % (37.0-47.0); MEAN CORPUSCULAR HGB 29.9 pg (27.0-31.0); MEAN CORPUSCULAR HGB CONC 30.3 g/dl (33.0-37.0); MEAN PLATELET VOLUME 10.8 fl (9.6-12.3); PLATELET COUNT AUTOMATED 206 10*3/uL (130-400); RED BLOOD COUNT 3.28 10*6/uL (4.10-5.10); RED CELL DISTRI WIDTH 13.9 % (0-14.5); WHITE BLOOD COUNT 10.3 10*3/uL (4.8-10.8)
[2021-02-03 06:39] LABS: MEAN CELL VOLUME 98.5 fl (81.0-99.0)
[2021-02-03 07:08] LABS: PLATELET SUFFICIENCY NORMAL (NORMAL); TOTAL CELLS COUNTED 100 #CELLS
[2021-02-03 08:00] VITALS: BP 107/31
[2021-02-03 09:11] LABS: ABG BASE EXCESS 18.5 mmol/L (-2.0-2.0); ARTERIAL BLOOD GAS PH 7.518 (7.35-7.45); ARTERIAL BLOOD GAS PO2 81.8 (80-90)
[2021-02-03 12:00] VITALS: BP 153/54
[2021-02-03 12:30] LABS: ABG BASE EXCESS 18.9 mmol/L (-2.0-2.0); ARTERIAL BLOOD GAS PH 7.527 (7.35-7.45); ARTERIAL BLOOD GAS PO2 82.1 (80-90)
[2021-02-03 15:22] LABS: CREATININE 1.22 mg/dL (0.55-1.02); POTASSIUM 3.3 mmol/L (3.5-5.1)
[2021-02-03 16:00] VITALS: BP 151/56
[2021-02-03 20:00] VITALS: BP 163/66
[2021-02-04] VITALS: BP 153/67
[2021-02-04 04:00] VITALS: BP 150/48
[2021-02-04 07:17] LABS: HEMATOCRIT 33.9 % (37.0-47.0); MEAN CORPUSCULAR HGB 30.5 pg (27.0-31.0); MEAN CORPUSCULAR HGB CONC 32.4 g/dl (33.0-37.0); MEAN PLATELET VOLUME 10.8 fl (9.6-12.3); PLATELET COUNT AUTOMATED 243 10*3/uL (130-400); RED BLOOD COUNT 3.61 10*6/uL (4.10-5.10); RED CELL DISTRI WIDTH 14.7 % (0-14.5); WHITE BLOOD COUNT 21.8 10*3/uL (4.8-10.8)
[2021-02-04 07:18] LABS: MEAN CELL VOLUME 93.9 fl (81.0-99.0)
[2021-02-04 07:32] LABS: TOTAL CELLS COUNTED 100 #CELLS
[2021-02-04 07:33] LABS: PLATELET SUFFICIENCY NORMAL (NORMAL); POLYCHROMASIA SLIGHT; STOMATOCYTE FEW
[2021-02-04 07:34] LABS: CREATININE 1.16 mg/dL (0.55-1.02)
[2021-02-04 08:00] VITALS: BP 155/48
[2021-02-04 09:04] LABS: ABG BASE EXCESS 16.7 mmol/L (-2.0-2.0); ARTERIAL BLOOD GAS PH 7.5 (7.35-7.45)
[2021-02-04 11:59] LABS: ABG BASE EXCESS 15.6 mmol/L (-2.0-2.0); ARTERIAL BLOOD GAS PH 7.452 (7.35-7.45); ARTERIAL BLOOD GAS PO2 82.4 (80-90)
[2021-02-04 12:00] VITALS: BP 142/47
[2021-02-04 15:26] LABS: ARTERIAL BLOOD GAS PH 7.432 (7.35-7.45); ARTERIAL BLOOD GAS PO2 77.1 (80-90)
[2021-02-04 16:05] VITALS: BP 139/53
[2021-02-04 17:40] LABS: ABG BASE EXCESS 20.3 mmol/L (-2.0-2.0); ARTERIAL BLOOD GAS PH 7.464 (7.35-7.45)
[2021-02-04 20:03] VITALS: BP 142/52
[2021-02-05] VITALS: BP 162/48
[2021-02-05 04:00] VITALS: BP 153/61
[2021-02-05 06:23] LABS: BASO % 0.1 % (0.0-1.0); HEMATOCRIT 35.4 % (37.0-47.0); LYMPH # 0.7 10*3/uL (1.3-4.4); LYMPH % 3.9 % (27.0-41.0); MEAN CORPUSCULAR HGB 30.3 pg (27.0-31.0); MEAN CORPUSCULAR HGB CONC 30.5 g/dl (33.0-37.0); MONO % 5.7 % (3.0-9.0); NEUT # 15.5 10*3/uL (2.3-7.9); NEUT % 89.6 % (47.0-73.0); PLATELET COUNT AUTOMATED 264 10*3/uL (130-400); RED BLOOD COUNT 3.57 10*6/uL (4.10-5.10); WHITE BLOOD COUNT 17.3 10*3/uL (4.8-10.8)
[2021-02-05 06:37] LABS: MEAN CELL VOLUME 99.2 fl (81.0-99.0)
[2021-02-05 06:40] LABS: BUN 45 mg/dl (7-24); CHLORIDE 98 mmol/L (98-107); CREATININE 0.98 mg/dL (0.55-1.02); POTASSIUM 3.6 mmol/L (3.5-5.1); SODIUM 144 mmol/L (136-145)
[2021-02-05 08:00] VITALS: BP 147/50
[2021-02-05 08:32] LABS: ABG BASE EXCESS 17.7 mmol/L (-2.0-2.0); ARTERIAL BLOOD GAS PH 7.458 (7.35-7.45); ARTERIAL BLOOD GAS PO2 97.9 (80-90)
[2021-02-05 12:00] VITALS: BP 129/48
[2021-02-05 16:00] VITALS: BP 140/46
[2021-02-05 20:00] VITALS: BP 146/47
[2021-02-06] VITALS: BP 148/46
[2021-02-06 04:00] VITALS: BP 141/46
[2021-02-06 06:15] LABS: ALBUMIN 3.2 gm/dl (3.1-4.5); ALKALINE PHOSPHATASE 70 U/L (45-117); BASO % 0.1 % (0.0-1.0); BUN 47 mg/dl (7-24); CHLORIDE 98 mmol/L (98-107); CREATININE 0.93 mg/dL (0.55-1.02); HEMATOCRIT 34.9 % (37.0-47.0); LYMPH # 0.8 10*3/uL (1.3-4.4); LYMPH % 7.2 % (27.0-41.0); MEAN CELL VOLUME 101.2 fl (81.0-99.0); MEAN CORPUSCULAR HGB 30.1 pg (27.0-31.0); MEAN CORPUSCULAR HGB CONC 29.8 g/dl (33.0-37.0); MEAN PLATELET VOLUME 10.5 fl (9.6-12.3); MONO # 1.1 10*3/uL (0.1-1.0); MONO % 10.3 % (3.0-9.0); NEUT # 8.7 10*3/uL (2.3-7.9); PLATELET COUNT AUTOMATED 280 10*3/uL (130-400); POTASSIUM 3.7 mmol/L (3.5-5.1); RED BLOOD COUNT 3.45 10*6/uL (4.10-5.10); RED CELL DISTRI WIDTH 14.6 % (0-14.5); SGOT/AST 95 IU/L (3-35); SGPT/ALT 58 U/L (12-78); SODIUM 144 mmol/L (136-145); TOTAL PROTEIN 6.9 gm/dL (6.4-8.2); WHITE BLOOD COUNT 10.6 10*3/uL (4.8-10.8)
[2021-02-06 08:00] VITALS: BP 148/40
[2021-02-06 08:06] LABS: ABG BASE EXCESS 21.2 mmol/L (-2.0-2.0); ARTERIAL BLOOD GAS PH 7.435 (7.35-7.45); ARTERIAL BLOOD GAS PO2 100.1 (80-90)
[2021-02-06 12:00] VITALS: BP 137/38
[2021-02-06 16:00] VITALS: BP 125/74
[2021-02-06 20:00] VITALS: BP 115/40
[2021-02-07] VITALS: BP 157/56
[2021-02-07 08:00] VITALS: BP 146/50
[2021-02-07 08:44] LABS: ABG BASE EXCESS 21.6 mmol/L (-2.0-2.0); ARTERIAL BLOOD GAS PH 7.46 (7.35-7.45); ARTERIAL BLOOD GAS PO2 149.5 (80-90)
[2021-02-07 12:00] VITALS: BP 151/51
[2021-02-07 16:00] VITALS: BP 135/44
[2021-02-07 20:00] VITALS: BP 148/66
[2021-02-08] VITALS: BP 120/54
[2021-02-08 06:05] LABS: BASO % 0.1 % (0.0-1.0); EOS # 0.1 10*3/uL (0.0-0.4); EOS % 0.5 % (1.0-4.0); LYMPH # 1.5 10*3/uL (1.3-4.4); LYMPH % 15.8 % (27.0-41.0); MEAN CELL VOLUME 99.7 fl (81.0-99.0); MEAN CORPUSCULAR HGB 29.6 pg (27.0-31.0); MEAN CORPUSCULAR HGB CONC 29.7 g/dl (33.0-37.0); MEAN PLATELET VOLUME 10.3 fl (9.6-12.3); MONO # 1.3 10*3/uL (0.1-1.0); MONO % 13.2 % (3.0-9.0); NEUT # 6.7 10*3/uL (2.3-7.9); NEUT % 70.1 % (47.0-73.0); PLATELET COUNT AUTOMATED 304 10*3/uL (130-400); RED BLOOD COUNT 3.71 10*6/uL (4.10-5.10); RED CELL DISTRI WIDTH 13.9 % (0-14.5); WHITE BLOOD COUNT 9.6 10*3/uL (4.8-10.8)
[2021-02-08 06:43] LABS: CREATININE 1.34 mg/dL (0.55-1.02)
[2021-02-08 08:00] VITALS: BP 135/35
[2021-02-08 12:00] VITALS: BP 135/74
[2021-02-08] MEDS ORDERED: HYDROCODONE-AC1 EAC1 PO (12:52)
[2021-02-08 20:00] VITALS: BP 128/72
[2021-02-09 07:04] LABS: CREATININE 1.2 mg/dL (0.55-1.02); POTASSIUM 3.2 mmol/L (3.5-5.1)
[2021-02-09 07:23] VITALS: BP 129/70
[2021-02-09 16:00] VITALS: BP 140/47
[2021-02-09 20:00] VITALS: BP 136/98
[2021-02-10] VITALS: BP 140/86
[2021-02-10 08:00] VITALS: BP 138/50
[2021-02-10 16:00] VITALS: BP 100/58
[2021-02-10 20:10] VITALS: BP 149/72
[2021-02-11] VITALS: BP 134/45
[2021-02-11 06:53] LABS: BASO % 0.1 % (0.0-1.0); EOS # 0.2 10*3/uL (0.0-0.4); EOS % 1.4 % (1.0-4.0); HEMATOCRIT 36.1 % (37.0-47.0); LYMPH # 2.4 10*3/uL (1.3-4.4); LYMPH % 19.5 % (27.0-41.0); MEAN CELL VOLUME 98.4 fl (81.0-99.0); MEAN CORPUSCULAR HGB CONC 30.5 g/dl (33.0-37.0); MEAN PLATELET VOLUME 9.8 fl (9.6-12.3); MONO # 1.2 10*3/uL (0.1-1.0); MONO % 9.8 % (3.0-9.0); NEUT # 8.5 10*3/uL (2.3-7.9); NEUT % 68.2 % (47.0-73.0); PLATELET COUNT AUTOMATED 317 10*3/uL (130-400); RED BLOOD COUNT 3.67 10*6/uL (4.10-5.10); RED CELL DISTRI WIDTH 14.2 % (0-14.5); WHITE BLOOD COUNT 12.5 10*3/uL (4.8-10.8)
[2021-02-11 07:11] LABS: CREATININE 0.96 mg/dL (0.55-1.02)
[2021-02-11 08:00] VITALS: BP 140/57
[2021-02-11 16:00] VITALS: BP 136/40
[2021-02-11 20:00] VITALS: BP 140/54
[2021-02-12] VITALS: BP 137/61
[2021-02-12 08:00] VITALS: BP 138/34
[2021-02-12] MEDS ORDERED: ATIVAN1 MG PO (14:01)
[2021-02-12] MEDS ORDERED: HYDROCODONE-AC1 EAC1 PO (14:01)
[2021-02-12] MEDS ORDERED: PREDNISONE10 MG PO (14:01)
== END 2021-02-12 18:14 | DRG 871 ==
LOC: ED 03:13 → EDHOLD 05:03 → ICCU 05:03 → 5E 02-06 11:33
PROVIDERS: Emergency Medicine; Internal Medicine; Internal Medicine Critical Care Medicine; Social Worker Clinical; ADMIT Internal Medicine; ATTEND Internal Medicine
PROC: 5A1945Z Respiratory Ventilation, 24-96 Consecutive Hours (ICD-10-PCS; principal; 2021-02-02)
PROC: 0BH18EZ Insertion of Endotracheal Airway into Trachea, Via Natural or Artificial Opening Endoscopic (ICD-10-PCS; 2021-02-02)
PROC: 5A09357 Assistance with Respiratory Ventilation, Less than 24 Consecutive Hours, Continuous Positive Airway Pressure (ICD-10-PCS; 2021-02-04)
PROC: 5A09357 Assistance with Respiratory Ventilation, Less than 24 Consecutive Hours, Continuous Positive Airway Pressure (ICD-10-PCS; 2021-02-09)
DX: A41.9 Sepsis, unspecified organism (principal); J18.9 Pneumonia, unspecified organism; I50.33 Acute on chronic diastolic (congestive) heart failure; J96.21 Acute and chronic respiratory failure with hypoxia; J96.22 Acute and chronic respiratory failure with hypercapnia; J44.1 Chronic obstructive pulmonary disease with (acute) exacerbation; J98.11 Atelectasis; E44.0 Moderate protein-calorie malnutrition; E87.3 Alkalosis; J81.1 Chronic pulmonary edema; J44.0 Chronic obstructive pulmonary disease with (acute) lower respiratory infection; R65.20 Severe sepsis without septic shock; D53.9 Nutritional anemia, unspecified; E03.9 Hypothyroidism, unspecified; Z20.822 Contact with and (suspected) exposure to COVID-19; G89.4 Chronic pain syndrome; E87.6 Hypokalemia; E87.8 Other disorders of electrolyte and fluid balance, not elsewhere classified; R73.9 Hyperglycemia, unspecified; E55.9 Vitamin D deficiency, unspecified; B95.62 Methicillin resistant Staphylococcus aureus infection as the cause of diseases classified elsewhere; J20.9 Acute bronchitis, unspecified; R53.81 Other malaise; I11.0 Hypertensive heart disease with heart failure; F41.9 Anxiety disorder, unspecified; Z88.1 Allergy status to other antibiotic agents; Z82.49 Family history of ischemic heart disease and other diseases of the circulatory system; Z80.0 Family history of malignant neoplasm of digestive organs; Z68.23 Body mass index [BMI] 23.0-23.9, adult

== ENCOUNTER 2021-04-18 01:28 | Inpatient (IN) | payer OTHER ==
[~2021-04-18] VITALS: Ht 149.8 cm; Wt 57.6 kg
[~2021-04-18 01:28] MED LIST changes: +ATIVAN1 MG PO; +K-LOR 20MEQ20 ME1 PO; +PREDNISONE10 MG PO; +PROMETHAZINE25 M1 PO; +SOMA350 MG PO
[2021-04-18 01:30] VITALS: BP 167/70
[2021-04-18] MEDS ORDERED: LORAZEPAM1 MG PO (01:40)
[2021-04-18] MEDS ORDERED: PROVENTIL HFA6.7 GM INH (01:41)
[2021-04-18 02:07] LABS: ARTERIAL BLOOD GAS PH 7.227 (7.35-7.45); ARTERIAL BLOOD GAS PO2 196.2 (80-90)
[2021-04-18 02:38] LABS: ALBUMIN 3.2 gm/dl (3.1-4.5); ALKALINE PHOSPHATASE 89 U/L (45-117); BUN 9 mg/dl (7-24); CHLORIDE 101 mmol/L (98-107); CREATININE 0.65 mg/dL (0.55-1.02); SGOT/AST 21 IU/L (3-35); SGPT/ALT 14 U/L (12-78); SODIUM 140 mmol/L (136-145); TOTAL PROTEIN 6.9 gm/dL (6.4-8.2)
[2021-04-18 02:44] LABS: TROPONIN I < 0.015 ng/ml (<0.045)
[2021-04-18 02:45] LABS: POTASSIUM 4.5 mmol/L (3.5-5.1)
[2021-04-18 02:50] LABS: BASO % 0.4 % (0.0-1.0); EOS # 0.1 10*3/uL (0.0-0.4); EOS % 0.6 % (1.0-4.0); HEMATOCRIT 39.6 % (37.0-47.0); LYMPH # 1.3 10*3/uL (1.3-4.4); LYMPH % 12.7 % (27.0-41.0); MEAN CELL VOLUME 103.4 fl (81.0-99.0); MEAN CORPUSCULAR HGB 30.3 pg (27.0-31.0); MEAN CORPUSCULAR HGB CONC 29.3 g/dl (33.0-37.0); MEAN PLATELET VOLUME 10.1 fl (9.6-12.3); MONO # 0.8 10*3/uL (0.1-1.0); MONO % 8.1 % (3.0-9.0); NEUT # 7.7 10*3/uL (2.3-7.9); NEUT % 77.9 % (47.0-73.0); PLATELET COUNT AUTOMATED 169 10*3/uL (130-400); RED BLOOD COUNT 3.83 10*6/uL (4.10-5.10); RED CELL DISTRI WIDTH 13.6 % (0-14.5); WHITE BLOOD COUNT 9.9 10*3/uL (4.8-10.8)
[2021-04-18 05:06] LABS: BILIRUBIN Negative (Negative); BLOOD Trace-Lysed (Negative); CLARITY Cloudy (Clear); COLOR Dark Yellow (Yellow); GLUCOSE Negative (Negative); KETONE Trace (Negative); LEUKO ESTERASE Trace (Negative); NITRITE Positive (Negative); SPECIFIC GRAVITY 1.025 (1.001-1.030)
[2021-04-18 05:29] LABS: BACTERIA 4+
[2021-04-18 05:44] LABS: ALBUMIN 3.1 gm/dl (3.1-4.5); ALKALINE PHOSPHATASE 84 U/L (45-117); BUN 10 mg/dl (7-24); CHLORIDE 101 mmol/L (98-107); CREATININE 0.68 mg/dL (0.55-1.02); SGOT/AST 15 IU/L (3-35); SGPT/ALT 13 U/L (12-78); SODIUM 140 mmol/L (136-145); TOTAL PROTEIN 6.6 gm/dL (6.4-8.2)
[2021-04-18 06:25] LABS: BASO % 0.3 % (0.0-1.0); EOS % 0.4 % (1.0-4.0); HEMATOCRIT 37.9 % (37.0-47.0); LYMPH # 1.2 10*3/uL (1.3-4.4); LYMPH % 11.2 % (27.0-41.0); MEAN CELL VOLUME 105.3 fl (81.0-99.0); MEAN CORPUSCULAR HGB 30.3 pg (27.0-31.0); MEAN CORPUSCULAR HGB CONC 28.8 g/dl (33.0-37.0); MONO # 0.8 10*3/uL (0.1-1.0); MONO % 7.7 % (3.0-9.0); NEUT # 8.3 10*3/uL (2.3-7.9); NEUT % 80.1 % (47.0-73.0); PLATELET COUNT AUTOMATED 170 10*3/uL (130-400); RED CELL DISTRI WIDTH 13.7 % (0-14.5); WHITE BLOOD COUNT 10.4 10*3/uL (4.8-10.8)
[2021-04-18 06:36] LABS: ACT PARTIAL THROMBO TIME 26.3 SECONDS (20.0-32.1)
[2021-04-18 06:52] LABS: ABG BASE EXCESS 11.8 mmol/L (-2.0-2.0); ARTERIAL BLOOD GAS PH 7.265 (7.35-7.45); ARTERIAL BLOOD GAS PO2 98.9 (80-90)
[2021-04-18 09:31] VITALS: BP 155/66
[2021-04-18 10:53] LABS: ABG BASE EXCESS 10.2 mmol/L (-2.0-2.0); ARTERIAL BLOOD GAS PH 7.283 (7.35-7.45); ARTERIAL BLOOD GAS PO2 113.5 (80-90)
[2021-04-18 11:21] VITALS: BP 141/78
[2021-04-18 13:26] LABS: ABG BASE EXCESS 11.6 mmol/L (-2.0-2.0); ARTERIAL BLOOD GAS PH 7.285 (7.35-7.45)
[2021-04-18 17:00] VITALS: BP 150/95
[2021-04-18] MEDS ORDERED: HYDROCODONE-AC1 EAC1 PO (17:14)
[2021-04-18 20:00] VITALS: BP 150/90
[2021-04-18 21:49] LABS: ABG BASE EXCESS 7.9 mmol/L (-2.0-2.0); ARTERIAL BLOOD GAS PH 7.373 (7.35-7.45); ARTERIAL BLOOD GAS PO2 80.7 (80-90)
[2021-04-19] VITALS: BP 144/84
[2021-04-19 04:00] VITALS: BP 150/80
[2021-04-19 04:59] LABS: BASO % 0.2 % (0.0-1.0); HEMATOCRIT 40.7 % (37.0-47.0); LYMPH # 0.6 10*3/uL (1.3-4.4); LYMPH % 11.2 % (27.0-41.0); MEAN CELL VOLUME 102.8 fl (81.0-99.0); MEAN CORPUSCULAR HGB 30.6 pg (27.0-31.0); MEAN CORPUSCULAR HGB CONC 29.7 g/dl (33.0-37.0); MEAN PLATELET VOLUME 10.5 fl (9.6-12.3); MONO % 0.4 % (3.0-9.0); NEUT # 4.5 10*3/uL (2.3-7.9); NEUT % 87.8 % (47.0-73.0); PLATELET COUNT AUTOMATED 164 10*3/uL (130-400); RED BLOOD COUNT 3.96 10*6/uL (4.10-5.10); RED CELL DISTRI WIDTH 13.7 % (0-14.5); WHITE BLOOD COUNT 5.2 10*3/uL (4.8-10.8)
[2021-04-19 05:14] LABS: ALKALINE PHOSPHATASE 87 U/L (45-117); BUN 19 mg/dl (7-24); CHLORIDE 99 mmol/L (98-107); CREATININE 0.67 mg/dL (0.55-1.02); POTASSIUM 4.7 mmol/L (3.5-5.1); SGOT/AST 17 IU/L (3-35); SGPT/ALT 14 U/L (12-78); SODIUM 138 mmol/L (136-145); TOTAL PROTEIN 6.5 gm/dL (6.4-8.2)
[2021-04-19 07:19] VITALS: BP 114/38
[2021-04-19 07:38] LABS: ABG BASE EXCESS 6.1 mmol/L (-2.0-2.0); ARTERIAL BLOOD GAS PH 7.42 (7.35-7.45); ARTERIAL BLOOD GAS PO2 89.3 (80-90)
[2021-04-19 12:00] VITALS: BP 148/92; BP 157/58
[2021-04-19 16:00] VITALS: BP 150/55
[2021-04-19 20:00] VITALS: BP 136/44
[2021-04-20] VITALS: BP 155/60
[2021-04-20 05:31] LABS: ALKALINE PHOSPHATASE 72 U/L (45-117); CHLORIDE 99 mmol/L (98-107); CREATININE 1.03 mg/dL (0.55-1.02); SGOT/AST 19 IU/L (3-35); SGPT/ALT 13 U/L (12-78); SODIUM 136 mmol/L (136-145); TOTAL PROTEIN 6.2 gm/dL (6.4-8.2)
[2021-04-20 05:38] LABS: BUN 32 mg/dl (7-24)
[2021-04-20 06:59] LABS: HEMATOCRIT 32.1 % (37.0-47.0); MEAN CORPUSCULAR HGB 30.8 pg (27.0-31.0); MEAN CORPUSCULAR HGB CONC 31.5 g/dl (33.0-37.0); PLATELET COUNT AUTOMATED 196 10*3/uL (130-400); RED BLOOD COUNT 3.28 10*6/uL (4.10-5.10); WHITE BLOOD COUNT 7.3 10*3/uL (4.8-10.8)
[2021-04-20 07:01] LABS: MEAN CELL VOLUME 97.9 fl (81.0-99.0)
[2021-04-20 07:48] LABS: PLATELET SUFFICIENCY NORMAL (NORMAL); TOTAL CELLS COUNTED 100 #CELLS
[2021-04-20 07:51] LABS: ARTERIAL BLOOD GAS PH 7.313 (7.35-7.45); ARTERIAL BLOOD GAS PO2 127.9 (80-90)
[2021-04-20 08:00] VITALS: BP 147/49
[2021-04-20 12:00] VITALS: BP 150/48
[2021-04-20 16:00] VITALS: BP 158/68
[2021-04-20 20:00] VITALS: BP 152/54
[2021-04-21] VITALS: BP 132/45
[2021-04-21 04:00] VITALS: BP 108/29
[2021-04-21 05:36] LABS: ALBUMIN 3.1 gm/dl (3.1-4.5); ALKALINE PHOSPHATASE 69 U/L (45-117); BUN 26 mg/dl (7-24); CHLORIDE 100 mmol/L (98-107); CREATININE 0.77 mg/dL (0.55-1.02); POTASSIUM 4.1 mmol/L (3.5-5.1); SGOT/AST 33 IU/L (3-35); SGPT/ALT 17 U/L (12-78); SODIUM 139 mmol/L (136-145); TOTAL PROTEIN 6.4 gm/dL (6.4-8.2)
[2021-04-21 06:03] LABS: HEMATOCRIT 37.2 % (37.0-47.0); MEAN CELL VOLUME 100.3 fl (81.0-99.0); MEAN CORPUSCULAR HGB CONC 30.9 g/dl (33.0-37.0); MEAN PLATELET VOLUME 10.7 fl (9.6-12.3); PLATELET COUNT AUTOMATED 209 10*3/uL (130-400); RED BLOOD COUNT 3.71 10*6/uL (4.10-5.10); RED CELL DISTRI WIDTH 14.2 % (0-14.5); WHITE BLOOD COUNT 7.7 10*3/uL (4.8-10.8)
[2021-04-21 06:45] LABS: PLATELET SUFFICIENCY NORMAL (NORMAL); TOTAL CELLS COUNTED 100 #CELLS
[2021-04-21 07:15] LABS: ABG BASE EXCESS 16.7 mmol/L (-2.0-2.0); ARTERIAL BLOOD GAS PH 7.397 (7.35-7.45); ARTERIAL BLOOD GAS PO2 120.8 (80-90)
[2021-04-21 08:00] VITALS: BP 137/42
[2021-04-21 12:00] VITALS: BP 156/67
[2021-04-21 16:00] VITALS: BP 142/80
[2021-04-21 20:00] VITALS: BP 166/61
[2021-04-22] VITALS: BP 142/83
[2021-04-22 05:01] LABS: HEMATOCRIT 35.5 % (37.0-47.0); LYMPH # 0.7 10*3/uL (1.3-4.4); LYMPH % 7.9 % (27.0-41.0); MEAN CELL VOLUME 100.3 fl (81.0-99.0); MEAN CORPUSCULAR HGB 30.8 pg (27.0-31.0); MEAN CORPUSCULAR HGB CONC 30.7 g/dl (33.0-37.0); MEAN PLATELET VOLUME 10.2 fl (9.6-12.3); MONO % 11.1 % (3.0-9.0); NEUT % 80.5 % (47.0-73.0); PLATELET COUNT AUTOMATED 206 10*3/uL (130-400); RED BLOOD COUNT 3.54 10*6/uL (4.10-5.10); RED CELL DISTRI WIDTH 14.1 % (0-14.5); WHITE BLOOD COUNT 8.7 10*3/uL (4.8-10.8)
[2021-04-22 05:17] LABS: ALKALINE PHOSPHATASE 65 U/L (45-117); BUN 20 mg/dl (7-24); CHLORIDE 101 mmol/L (98-107); CREATININE 0.72 mg/dL (0.55-1.02); POTASSIUM 3.8 mmol/L (3.5-5.1); SGOT/AST 61 IU/L (3-35); SGPT/ALT 36 U/L (12-78); SODIUM 142 mmol/L (136-145)
[2021-04-22 07:44] LABS: ABG BASE EXCESS 13.9 mmol/L (-2.0-2.0); ARTERIAL BLOOD GAS PH 7.339 (7.35-7.45); ARTERIAL BLOOD GAS PO2 135.8 (80-90)
[2021-04-22 08:00] VITALS: BP 156/48
[2021-04-22 12:00] VITALS: BP 135/55
[2021-04-22 16:00] VITALS: BP 158/71
[2021-04-22 20:00] VITALS: BP 148/71
[2021-04-23] VITALS: BP 121/46
[2021-04-23 07:51] LABS: ABG BASE EXCESS 16.3 mmol/L (-2.0-2.0); ARTERIAL BLOOD GAS PH 7.315 (7.35-7.45); ARTERIAL BLOOD GAS PO2 131.3 (80-90)
[2021-04-23 08:00] VITALS: BP 136/45
[2021-04-23 16:00] VITALS: BP 125/35
[2021-04-23 20:00] VITALS: BP 146/57
[2021-04-24] VITALS: BP 143/40
[2021-04-24 08:00] VITALS: BP 135/57
[2021-04-24 09:37] LABS: EOS % 0.1 % (1.0-4.0); HEMATOCRIT 37.3 % (37.0-47.0); LYMPH # 1.6 10*3/uL (1.3-4.4); LYMPH % 16.4 % (27.0-41.0); MEAN CELL VOLUME 101.1 fl (81.0-99.0); MEAN CORPUSCULAR HGB 30.4 pg (27.0-31.0); MEAN PLATELET VOLUME 10.2 fl (9.6-12.3); MONO # 0.8 10*3/uL (0.1-1.0); MONO % 7.9 % (3.0-9.0); NEUT # 7.2 10*3/uL (2.3-7.9); NEUT % 75.3 % (47.0-73.0); PLATELET COUNT AUTOMATED 191 10*3/uL (130-400); RED BLOOD COUNT 3.69 10*6/uL (4.10-5.10); RED CELL DISTRI WIDTH 13.5 % (0-14.5); WHITE BLOOD COUNT 9.5 10*3/uL (4.8-10.8)
[2021-04-24 09:54] LABS: ALBUMIN 3.3 gm/dl (3.1-4.5); ALKALINE PHOSPHATASE 66 U/L (45-117); BUN 18 mg/dl (7-24); CHLORIDE 101 mmol/L (98-107); CREATININE 0.68 mg/dL (0.55-1.02); POTASSIUM 3.4 mmol/L (3.5-5.1); SGOT/AST 24 IU/L (3-35); SGPT/ALT 31 U/L (12-78); SODIUM 137 mmol/L (136-145)
[2021-04-24 12:00] VITALS: BP 121/60
[2021-04-24 16:00] VITALS: BP 130/66
[2021-04-24 20:00] VITALS: BP 146/38
[2021-04-25 06:16] LABS: BASO % 0.1 % (0.0-1.0); EOS % 0.1 % (1.0-4.0); HEMATOCRIT 38.6 % (37.0-47.0); LYMPH # 1.4 10*3/uL (1.3-4.4); LYMPH % 16.5 % (27.0-41.0); MEAN CELL VOLUME 99.5 fl (81.0-99.0); MEAN CORPUSCULAR HGB 30.4 pg (27.0-31.0); MEAN CORPUSCULAR HGB CONC 30.6 g/dl (33.0-37.0); MEAN PLATELET VOLUME 10.2 fl (9.6-12.3); MONO # 0.7 10*3/uL (0.1-1.0); MONO % 7.9 % (3.0-9.0); NEUT # 6.4 10*3/uL (2.3-7.9); NEUT % 75.1 % (47.0-73.0); PLATELET COUNT AUTOMATED 236 10*3/uL (130-400); RED BLOOD COUNT 3.88 10*6/uL (4.10-5.10); RED CELL DISTRI WIDTH 13.7 % (0-14.5); WHITE BLOOD COUNT 8.6 10*3/uL (4.8-10.8)
[2021-04-25 06:26] LABS: BUN 19 mg/dl (7-24); CHLORIDE 102 mmol/L (98-107); CREATININE 0.78 mg/dL (0.55-1.02); POTASSIUM 3.9 mmol/L (3.5-5.1); SODIUM 139 mmol/L (136-145)
[2021-04-25 08:00] VITALS: BP 144/70; BP 97/76
[2021-04-25 12:00] VITALS: BP 106/70
[2021-04-25 16:00] VITALS: BP 139/51
[2021-04-25 20:05] VITALS: BP 162/68
[2021-04-26 00:06] VITALS: BP 152/53
[2021-04-26 08:00] VITALS: BP 150/60
[2021-04-26 12:00] VITALS: BP 147/58
[2021-04-26 16:00] VITALS: BP 145/45
[2021-04-26 20:00] VITALS: BP 135/43
[2021-04-27 08:00] VITALS: BP 134/42
[2021-04-27] MEDS ORDERED: PREDNISONE10 MG PO (11:52)
[2021-04-27 13:00] VITALS: BP 142/50
== END 2021-04-27 15:00 | disposition home or self-care (01) | DRG 189 ==
LOC: ED 01:28 → EDHOLD 03:27 → ICCU 03:27 → 4E 03:27 → ICCU 16:49 → 4E 04-21 14:29
PROVIDERS: Emergency Medicine; Hospitalist; Internal Medicine; Internal Medicine Critical Care Medicine; Social Worker Clinical; Student in an Organized Health Care Education/Training Program; ADMIT Emergency Medicine; ATTEND Emergency Medicine
PROC: 5A09357 Assistance with Respiratory Ventilation, Less than 24 Consecutive Hours, Continuous Positive Airway Pressure (ICD-10-PCS; 2021-04-18)
PROC: 5A09357 Assistance with Respiratory Ventilation, Less than 24 Consecutive Hours, Continuous Positive Airway Pressure (ICD-10-PCS; 2021-04-19)
PROC: 5A09357 Assistance with Respiratory Ventilation, Less than 24 Consecutive Hours, Continuous Positive Airway Pressure (ICD-10-PCS; 2021-04-21)
PROC: 5A09357 Assistance with Respiratory Ventilation, Less than 24 Consecutive Hours, Continuous Positive Airway Pressure (ICD-10-PCS; 2021-04-24)
PROC: 5A09357 Assistance with Respiratory Ventilation, Less than 24 Consecutive Hours, Continuous Positive Airway Pressure (ICD-10-PCS; 2021-04-25)
PROC: 5A09357 Assistance with Respiratory Ventilation, Less than 24 Consecutive Hours, Continuous Positive Airway Pressure (ICD-10-PCS; principal; 2021-04-26)
DX: J96.22 Acute and chronic respiratory failure with hypercapnia (principal); G93.41 Metabolic encephalopathy; A41.9 Sepsis, unspecified organism; E87.3 Alkalosis; I50.32 Chronic diastolic (congestive) heart failure; E44.0 Moderate protein-calorie malnutrition; N30.01 Acute cystitis with hematuria; J96.21 Acute and chronic respiratory failure with hypoxia; I11.0 Hypertensive heart disease with heart failure; J96.12 Chronic respiratory failure with hypercapnia; Z20.822 Contact with and (suspected) exposure to COVID-19; D53.9 Nutritional anemia, unspecified; J44.9 Chronic obstructive pulmonary disease, unspecified; E03.9 Hypothyroidism, unspecified; Z53.20 Procedure and treatment not carried out because of patient's decision for unspecified reasons; G47.01 Insomnia due to medical condition; Z91.19 Patient's noncompliance with other medical treatment and regimen; Z99.81 Dependence on supplemental oxygen; Z88.0 Allergy status to penicillin; Z80.0 Family history of malignant neoplasm of digestive organs; Z82.49 Family history of ischemic heart disease and other diseases of the circulatory system; Z79.51 Long term (current) use of inhaled steroids; Z79.82 Long term (current) use of aspirin; Z79.899 Other long term (current) drug therapy; Z68.25 Body mass index [BMI] 25.0-25.9, adult

== ENCOUNTER → 2023-03-02 | Outpatient (CLI) | payer OTHER ==
[~2023-03-02] MED LIST changes: +ACETAZOLAMIDE250 MG PO; +DOXYCYCLINE HY100 M3 PO; +HYDROCOD-HOMAT1 EACH PO; +Ipratropium Brom3 ML NEB; +LASIX40 MG PO; +LEVOFLOXACIN750 M2 PO; +MECLIZINE HYD12.5 MG PO; +PROVENTIL HFA6.7 GM INH; +TRELEGY ELLIPT1 EACH INH; +VICO75300 PO; +VITAMIN D350 MCG PO; +XARE20MG PO; +XARELTO1 EACH PO
== END | disposition home or self-care (01) ==
LOC: RESCLI 02:53
PROVIDERS: ATTEND Internal Medicine
DX: J44.9 Chronic obstructive pulmonary disease, unspecified (principal); J96.11 Chronic respiratory failure with hypoxia; E03.9 Hypothyroidism, unspecified; I10 Essential (primary) hypertension; E55.9 Vitamin D deficiency, unspecified; G89.29 Other chronic pain; R91.1 Solitary pulmonary nodule; Z53.20 Procedure and treatment not carried out because of patient's decision for unspecified reasons; R42 Dizziness and giddiness; Z98.890 Other specified postprocedural states; Z90.49 Acquired absence of other specified parts of digestive tract; Z79.899 Other long term (current) drug therapy